=== PATIENT | female | born 1950 | race Caucasian/White ===

== ENCOUNTER 2018-10-30 09:16 | Outpatient (CLI) | payer MEDICARE ==
--- NOTE | 2018-10-30 19:17 | MRI Report ---
Reason: CHRONIC INSTABILITY OF KNEE, LEFT KNEE Procedure Date: 10/30/2018 Accession Number: [id number] / [id number] Procedure: MRI - Knee LT W/O CPT Code: FULL RESULT: EXAM: LEFT KNEE MRI WITHOUT CONTRAST EXAM DATE: 10/30/2018 10:13 AM. CLINICAL HISTORY: Chronic instability of left knee. COMPARISON: Radiographs 01/25/2011. TECHNIQUE: Multiplanar, multisequence T1-weighted and fluid-sensitive sequences of the knee without contrast. Other: None. FINDINGS: Bones: No fracture or bone lesion. Minimal reactive edema at the posterior aspect tibial spines and patella. Small tricompartmental osteophytes. Articular Cartilage: Shallow partial thickness loss and irregularity/fissuring at the central to posterior aspect medial compartment. Small regions deep partial thickness loss posterior aspect lateral compartment. Deep partial thickness loss and fissuring/tearing lateral patellar facet. Medial Meniscus: Intrasubstance degeneration anterior horn and root. Subtle radial tear adjacent to the free edge. Possible subtle horizontal tears contacting the inferior articular surface at the root. Degenerative fraying at the free edge body and posterior horn. Lateral Meniscus: Degenerative fraying at the free edges. Subtle irregularity at the anterior superior aspect anterior horn at the junction of the root. Cruciate Ligaments: Mild thickening and edema in the anterior cruciate ligament. Majority of the fibers appear intact. Posterior cruciate ligament intact. Collateral Ligaments: The medial collateral and lateral collateral ligamentous structures are intact. Tendons: The quadriceps, patellar, semimembranosus, and popliteus tendons are unremarkable. Musculature: No edema or fatty atrophy. Other: Small joint effusion. No popliteal cyst. No loose bodies. The medial and lateral retinacula are intact. Mild to moderate subcutaneous edema anteriorly. Mild reactive edema in the anterior fat pads including the deep and medial aspect of Hoffa's fat pad. IMPRESSION: 1. Intrasubstance degeneration anterior horn medial meniscus with subtle radial tear at the free edge and possible subtle horizontal tears extending into the root. Degenerative fraying body and posterior horn. 2. Degenerative fraying lateral meniscus. Possible subtle peripheral vertical tear anterior horn and root. 3. Mucoid degeneration anterior cruciate ligament. 4. Tricompartmental cartilage loss, deep partial thickness at the lateral compartment and lateral patellar facet. 5. Small joint effusion. RADIA MUSCULOSKELETAL RADIOLOGY SECTION
== END 2018-10-30 09:17 | disposition home or self-care (01) ==
LOC: DI 09:16
PROVIDERS: ATTEND Nurse Practitioner Family
DX: S83.242A Other tear of medial meniscus, current injury, left knee, initial encounter (principal); M23.301 Other meniscus derangements, unspecified lateral meniscus, left knee; M23.8X2 Other internal derangements of left knee; M23.92 Unspecified internal derangement of left knee; M25.462 Effusion, left knee

== ENCOUNTER 2019-01-27 11:29 | Outpatient (CLI) | payer MEDICARE ==
--- NOTE | 2019-01-28 08:45 | Mammography Report ---
Reason: SCREENING MAMMO Procedure Date: 01/27/2019 Accession Number: [id number] / [id number] Procedure: [facility]ON - Screening Mammo w/Claudio CPT Code: FULL RESULT: EXAM: Screening Mammo w/Claudio DATE: 01/27/2019 12:19 PM CLINICAL HISTORY: Routine screening. No reported personal or family history of breast cancer. History of breast reduction in 1999. TECHNIQUE: Bilateral CC and MLO views were obtained. COMPARISON: 09/29/2016 through 03/01/2011 FINDINGS: The breasts demonstrate scattered fibroglandular densities bilaterally. Bilateral breasts: There are no suspicious masses, calcifications or areas of distortion. Stable operative changes of reduction mammoplasty. IMPRESSION: Benign findings RECOMMENDATION: Routine annual screening unless otherwise clinically indicated. BI-RADS CATEGORY 2: Benign findings STANDARD QUALIFYING STATEMENTS: 1. This examination was not reviewed with the aid of Computer-Aided Detection (CAD). 2. A negative or benign imaging report should not preclude biopsy if clinically suspicious findings are present. 3. Dense breasts may obscure an underlying neoplasm. 4. This examination was reviewed with the aid of 3D breast imaging (tomosynthesis).
== END 2019-01-27 11:30 | disposition home or self-care (01) ==
LOC: DI 11:29
PROVIDERS: ATTEND Physician Assistant
DX: Z12.31 Encounter for screening mammogram for malignant neoplasm of breast (principal)
CPT/HCPCS: 77063; 77067

== ENCOUNTER 2021-07-13 11:39 | Outpatient (CLI) | payer MEDICARE ==
--- NOTE | 2021-07-13 12:53 | XRAY Report ---
PROCEDURE: Foot 2 View RT INDICATIONS: PX IN RT FOOT TECHNIQUE: 2 views of the foot were acquired. COMPARISON: None. FINDINGS: Bones: No fractures or dislocations. No suspicious bony lesions. Mild first MTP joint degeneration . Scattered subchondral sclerosis and spurring. Plantar calcaneal spur Soft tissues: No tibiotalar joint effusion. Achilles tendon appears normal. IMPRESSION: Plantar calcaneal spurring. Additional chronic degenerative changes as above. Reviewed by: Connor Harrell MD on 07/13/2021 12:51 PM PDT Approved by: Connor Harrell MD on 07/13/2021 12:51 PM PDT Station ID: [id number]
== END 2021-07-13 11:40 | disposition home or self-care (01) ==
LOC: DI.S 11:39
PROVIDERS: ATTEND Nurse Practitioner Family
DX: M77.31 Calcaneal spur, right foot (principal); M19.071 Primary osteoarthritis, right ankle and foot

== ENCOUNTER 2022-05-12 10:59 | Outpatient (CLI) | payer MEDICARE ==
--- NOTE | 2022-05-12 15:57 | XRAY Report ---
PROCEDURE: Lumbar Spine 2 View INDICATIONS: Chronic low back pain. TECHNIQUE: 2 views of the lumbar spine were acquired. COMPARISON: None. FINDINGS: Bones: 5 [id number] vertebrae are present. There is mild, approximately 3 mm of L3-L4 anteroli sthesis and 2 mm of L1-L2 and L2-L3 retrolisthesis. No vertebral body compression fractures. No susp icious bony lesions. Severe L5-S1 degenerative disease. Mild L1-L2, L2-L3, the L4 and L4-L5 degenerat king disease. Mild L3-L4, L4-L5 and L5-S1 facet arthropathy. Soft tissues: Overlying bowel gas pattern is normal. No suspicious soft tissue calcifications. IMPRESSION: 1. Multilevel degenerative disc disease. 2. Multilevel facet arthropathy. 3. No fracture. No acute osseous lesion. If there is continued clinical concern for pathology, then M RI should be considered for further evaluation. Reviewed by: Manisha Tompkins MD, PhD on 05/12/2022 3:55 PM PDT Approved by: Manisha Tompkins MD, PhD on 05/12/2022 3:55 PM PDT Station ID: [id number]
--- NOTE | 2022-05-12 15:58 | XRAY Report ---
PROCEDURE: Thoracic Spine 2 View INDICATIONS: Chronic back pain. TECHNIQUE: 3 views of the thoracic spine were acquired. COMPARISON: None. FINDINGS: Bones: No fractures or dislocations. No suspicious bony lesions. 12 pairs of ribs are noted, and a ppear intact where visualized. Moderate degenerative disc changes noted throughout the thoracic spin e. Mild facet hypertrophy noted at thoracic spine. Soft tissues: No paravertebral stripe thickening. IMPRESSION: 1. Multilevel degenerative disc disease. 2. Multilevel facet arthropathy. 3. No fracture. No acute osseous lesion. If there is continued clinical concern for pathology, then M RI should be considered for further evaluation. Reviewed by: Manisha Tompkins MD, PhD on 05/12/2022 3:56 PM PDT Approved by: Manisha Tompkins MD, PhD on 05/12/2022 3:56 PM PDT Station ID: [id number]
--- NOTE | 2022-05-12 16:48 | XRAY Report ---
PROCEDURE: Cervical Spine 2 View INDICATIONS: XRAY TECHNIQUE: 2 view(s) of the cervical spine were acquired. COMPARISON: None. FINDINGS: Bones: No fractures or dislocations to the C7-T1 level. The lateral masses of C1 appear intact on t he odontoid view. No suspicious bony lesions. There is trace anterolisthesis of C5 on C6. Moderate to severe disc space narrowing is present at C4-5, C5-6. Multilevel uncovertebral hypertrophy is pres ent. Soft tissues: No prevertebral soft tissue swelling. IMPRESSION: Degenerative changes most notable at C4-5, C5-6. Reviewed by: Rosalina Puri MD on 05/12/2022 4:47 PM PDT Approved by: Rosalina Puri MD on 05/12/2022 4:47 PM PDT Station ID: [id number]
--- NOTE | 2022-05-12 16:49 | XRAY Report ---
PROCEDURE: Hips 2V BILAT INDICATIONS: Sciatica pain TECHNIQUE: 2 views of the hip were acquired. COMPARISON: None FINDINGS: Bones: No fractures or dislocations. No suspicious bony lesions. The visualized pelvic ring appear s intact. Moderate bilateral degenerative hip joint space narrowing. No erosions. Mild degenerative changes are present within the lower lumbar spine. Soft tissues: No suspicious soft tissue calcifications or masses. IMPRESSION: Bilateral hip arthritic narrowing. Reviewed by: Rosalina Puri MD on 05/12/2022 4:47 PM PDT Approved by: Rosalina Puri MD on 05/12/2022 4:47 PM PDT Station ID: [id number]
== END 2022-05-12 11:00 | disposition home or self-care (01) ==
LOC: DI.S 10:59
PROVIDERS: ATTEND Nurse Practitioner Family
DX: M54.32 Sciatica, left side (principal); M54.31 Sciatica, right side; M16.0 Bilateral primary osteoarthritis of hip; M43.12 Spondylolisthesis, cervical region; M47.812 Spondylosis without myelopathy or radiculopathy, cervical region; M48.02 Spinal stenosis, cervical region; M47.814 Spondylosis without myelopathy or radiculopathy, thoracic region; M48.04 Spinal stenosis, thoracic region; M47.816 Spondylosis without myelopathy or radiculopathy, lumbar region; M43.16 Spondylolisthesis, lumbar region; M47.817 Spondylosis without myelopathy or radiculopathy, lumbosacral region; M48.061 Spinal stenosis, lumbar region without neurogenic claudication; M48.07 Spinal stenosis, lumbosacral region

== ENCOUNTER 2022-12-05 14:03 | Outpatient (CLI) | payer MEDICARE ==
--- NOTE | 2022-12-05 17:17 | XRAY Report ---
PROCEDURE: Hand 3 View RT INDICATIONS: PAIN IN RIGHT HAND TECHNIQUE: 3 views of the hand(s) acquired. COMPARISON: None FINDINGS: Bones: No fractures or dislocations. Mild to moderate right hand and wrist joint osteoarthritic montiel ges are seen most notably at first MCP joint and first CMC joint. No definite bony erosive changes ar e seen. No suspicious bony lesions. Soft tissues: No suspicious soft tissue calcifications. 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 No fracture or dislocation. No gross bony erosive changes. Reviewed by: Jason Roth MD on 12/05/2022 5:16 PM PST Approved by: Jason Roth MD on 12/05/2022 5:16 PM PST Station ID: [id number]
--- NOTE | 2022-12-05 17:17 | XRAY Report ---
PROCEDURE: Shoulder 3 View RT INDICATIONS: WRIST AND SHOULDER PAIN TECHNIQUE: 3 views of the shoulder were acquired. COMPARISON: None. FINDINGS: Bones: No fractures or dislocations. Moderate acromioclavicular joint osteoarthritic changes are see n with joint space narrowing, subchondral sclerosis and marginal osteophyte formation. No suspicious bony lesions. Visualized ribs appear intact. Soft tissues: No suspicious soft tissue calcifications. IMPRESSION: Moderate right acromioclavicular joint osteoarthritis. No fracture or dislocation. No gr oss soft tissue abnormalities. Reviewed by: Jason Roth MD on 12/05/2022 5:15 PM PST Approved by: Jason Roth MD on 12/05/2022 5:15 PM PST Station ID: [id number]
== END 2022-12-05 14:04 | disposition home or self-care (01) ==
LOC: DI.S 14:03
PROVIDERS: ATTEND Nurse Practitioner Family
DX: M18.11 Unilateral primary osteoarthritis of first carpometacarpal joint, right hand (principal); M19.041 Primary osteoarthritis, right hand; M19.031 Primary osteoarthritis, right wrist; M19.011 Primary osteoarthritis, right shoulder